=== PATIENT | male | born 1985 | race Caucasian/White ===

== ENCOUNTER 2023-08-31 11:09 | Emergency (ER) | payer OTHER, SELFPAY ==
--- NOTE | ~2023-08-31 | XR_ITS ---
EXAMINATION: XR CHEST CLINICAL INFORMATION: Leg swelling and shortness of breath COMPARISON: None available. TECHNIQUE: 2 views of the chest were obtained. FINDINGS: There is mild cardiac enlargement. No infiltrates effusions or lung masses are seen. There is no evidence of CHF. XR/XR chest 2V IMPRESSION: Mild cardiomegaly. No acute intrathoracic disease.
[2023-08-31 11:14] VITALS: BP 200/120; PULSE 104; RESP 22; TEMP 36.8; O2SAT 94; BMI 68.8
--- NOTE | 2023-08-31 11:15 | ED_ITS ---
HPI - General Adult General Chief complaint: General Medical Stated complaint: high BP and feet swelling Time Seen by Provider: 08/31/23 12:07 Source: patient and family Mode of arrival: ambulatory Limitations: no limitations History of Present Illness HPI narrative: 38 yo male with PMH of obesity, HTN, SEDRICK not using CPAP - came from [place] not taking his medications or using CPAP x 1 year but no feels his SEDRICK is worse his legs are more swollen and he has headaches from elevated BP so he came to get checked out. no PCP until December. He denies chest pain. He does not remember what HTN medications he was on in [place]. He notes he used to be on a diuretic. He has no known DM in the past. MD complaint: HTN Onset (ago): year(s) (1) Severity: moderate Pain Consistency: intermittent Relieving factors: none Exacerbating factors: none Associated symptoms: other (headaches, sleep apnea) Treatments prior to arrival: none Related Data Previous Rx's Medication Instructions Recorded amlodipine 5 mg tablet 5 mg PO DAILY #30 tabs 08/31/23 lisinopril 10 mg tablet 10 mg PO DAILY #30 tabs 08/31/23 Allergies Allergy/AdvReac Type Severity Reaction Status Date / Time No Known Allergies Allergy Verified 08/31/23 11:13 Review of Systems 2 Review of Systems: Constitutional : No Fever, No Chills, No Fatigue ENT/Mouth : No sore throat, No Rhinorrhea Eyes: No Eye Pain, No Swelling, No Redness Cardiovascular : No Chest Pain, No SOB, No Dyspnea on Exertion, pos edema Respiratory : No Cough, No Sputum Gastrointestinal : No Nausea, No Vomiting, No Diarrhea, No abdominal Pain Genitourinary : No Dysuria, No Urinary Frequency, No Hematuria, Musculoskeletal : No joint pain, No Myalgias, No Joint Swelling Skin : No Skin Lesions, No rash Neuro : No Weakness, No Numbness, No Dizziness, positive Headache Psych : No Anxiety/Panic, No Depression All other systems reviewed and are negative [facility] Past Medical History Attestation statement: The following information was validated with the patient. Source: obtained from family Medical History Sleep apnea Obesity HTN (hypertension) Social History Social History (Updated 08/31/23 @ 12:54 by Erika Cabrera DO) Patient Tobacco Use Status: Never used Tobacco Advance Directives: No Advance Directives Information Provided: Yes Physical Exam ED Vital Signs: Vital Signs - 24 hr 08/31/23 11:14 08/31/23 11:55 08/31/23 12:52 Temperature 98.3 F Pulse Rate 104 H 94 88 Respiratory Rate 22 H 20 20 Blood Pressure 200/120 H 191/125 H 187/118 H Pulse Oximetry 94 96 97 Oxygen Delivery Method Room Air Room Air Room Air 08/31/23 13:39 Temperature 97.4 F Pulse Rate 87 Respiratory Rate 16 Blood Pressure 186/126 H Pulse Oximetry 96 Oxygen Delivery Method Room Air BMI result Body Mass Index 68.8 Appearance: Alert. Oriented X3. No acute distress. Eyes: Pupils equal, round and reactive to light. ENT: Pharynx normal. Neck: Normal inspection. Neck supple. CVS: Normal heart rate and rhythm. Pulses normal. Respiratory: No respiratory distress. Breath sounds normal. Abdomen: Soft and nontender. obese Skin: Skin warm and dry. Normal skin color. Normal skin turgor. Extremities: trace lower extremity edema around ankles No calf ttp Neuro: Oriented X 3. No motor deficit. No sensory deficit. Course Course Course Narrative: Patient complains of bilateral leg swelling and pain which began 6 months ago He has history of being diagnosed with high blood pressure and sleep apnea in [place] but takes no medications, has no CPAP machine He complains of frequent shortness of breath and occasional chest pain This is rapid medical exam done in triage pending full evaluation of patient and all labs and results by provider in the ER Labs chest x-ray and EKG ordered Reevaluation(s) Reevaluation #1: appears in no distress likely all chronic will DC home on medications Medications Administered Discontinued Medications Generic Name Dose Route Start Last Admin Trade Name Freq PRN Reason Stop Dose Admin Amlodipine Besylate 5 mg 08/31/23 12:35 08/31/23 12:53 Amlodipine Besylate 5 Mg Tablet PO 08/31/23 12:36 5 mg ONCE ONE Administration Protocol Furosemide 40 mg 08/31/23 12:35 08/31/23 12:53 Furosemide 40 Mg Tablet PO 08/31/23 12:36 40 mg ONCE ONE Administration Protocol Medical Decision Making Medical Decision Making MDM Narrative: 38 yo male with PMH of SEDRICK on CPAP though not compliant, HTN, obesity, here with c/o not having medications x 1 year and has a mild headache and LE edema. He has no CP, no hypoxia. At this time has not been on meds x 1 year. Will need labs, EKG, CXR - edema is very mild and it is chronic doubt DVT. Will start on amlodipine and lasix clinically no signs of end organ damage Differential Diagnosis Differential Diagnoses: The differential diagnosis associated with the presentation includes uncontrolled HTN Admission/Observation Consideration of admission/observation: Escalation of care including admission/observation considered no signs of end organ damage chronic HTN can be managed as outpatient Lab Data [facility] Lab Attestation statement: I reviewed the patient's lab results. 08/31/23 11:28 08/31/23 11:28 Labs: Lab Results 08/31/23 Range/Units 11:28 WBC 7.4 (4.8-10.8) X10*3/uL RBC 5.51 (4.60-5.80) X10*6/uL Hgb 15.9 (14.0-18.0) g/dl Hct 49.1 (42.0-52.0) % MCV 89.1 (80.0-98.0) fL MCH 28.9 (27.0-33.0) pg MCHC 32.4 (31.0-36.0) g/dl RDW 14.6 (11.0-16.0) % Plt Count 287 (160-400) X10*3/uL MPV 11.0 (9.4-12.4) fL Immature Gran % (Auto) 0.7 H (0.0-0.4) % Neut % (Auto) 70.5 (45-73) % Lymph % (Auto) 16.5 L (20-40) % Cotton % (Auto) 8.5 (2-11) % Eos % (Auto) 3.1 (0-4) % Baso % (Auto) 0.7 (0-2) % Lymph # (Auto) 1.2 (1.2-4.9) X10*3/uL Cotton # (Auto) 0.6 (0.1-1.2) X10*3/uL Eos # (Auto) 0.2 (0.0-0.4) X10*3/uL Baso # (Auto) 0.1 (0.0-0.2) X10*3/uL Abs Immat Gran (auto) 0.05 H (0.00-0.03) X10*3/uL Absolute Neuts (auto) 5.2 (2.0-8.3) x10*3/uL Absolute Nucleated RBC 0.000 (0.0-0.012) X10*3/uL Nucleated RBC % (auto) 0.0 (0.0-0.2) /100WBC Sodium 142 (135-145) mmol/L Potassium 3.8 (3.3-5.1) mmol/L Chloride 108 (96-108) mmol/L Carbon Dioxide 28 (22-29) mmol/L Anion Gap 10 L (12-20) BUN 13 (9-16) mg/dL Creatinine 0.79 (0.5-1.4) mg/dL Estim Creat Clear Calc 165.1 Estimated GFR > 60 Random Glucose 138 H (60-115) mg/dL Calcium 9.3 (8.4-10.2) mg/dL Total Bilirubin 0.3 (0.0-1.0) mg/dL Direct Bilirubin 0.1 (0.0-0.5) mg/dL AST 12 (5-37) U/L ALT 17 (0-40) U/L Alkaline Phosphatase 99 (39-117) U/L Troponin I High Sens 3.3 (<3.5-35.0) ng/L B-Natriuretic Peptide 51 (<100) pg/mL Total Protein 7.5 (6.5-8.0) g/dL Albumin 4.1 (3.5-5.0) g/dL Independent Interpretation I performed an independent interpretation of an: EKG and Plain X-Ray (no CHF) Interpretation: Rate: 99 Rhythm: NSR [place]: left Normal P waves. Normal DAVIDA. Normal QRS complex. Poor R wave progression ST T wave : no CHATO, nonspecific ST T wave changes inf leads qTC: normal prior studies: no priors The study has been interpreted contemporaneously by me. . Radiology Impression Discussion of test interpretation with radiology: I have reviewed the radiologist's reading. Independent Historian Clinical information obtained from an independent historian. History obtained from or confirmed by: Friend Prescription Management I considered prescription management with: Other Discharge Plan Discharge Clinical Impression: Hypertension, uncontrolled Patient Disposition: Home, Self-Care Instructions: Heart Healthy Diet (ED), Chronic Hypertension (ED) Additional Instructions: take medications as prescribed. return for confusion, numbness, weakness, severe headaches, chest pain, increased swelling or any other concerns. please see a doctor as soon as possible. corona los medicamentos seg?n lo recetado. Regrese si tiene confusi?n, entumecimiento, debilidad, nash antonina de jb, dolor en el pecho, aumento de la hinchaz?n o cualquier otra inquietud. consulte a un m?dico lo antes posible. Prescriptions: New amlodipine 5 mg tablet 5 mg PO DAILY Qty: 30 1RF lisinopril 10 mg tablet 10 mg PO DAILY Qty: 30 1RF Interventions: ED Discharge Assessment Last Done: 08/31/23 13:47 Discharge Date/Time: 08/31/23 13:47 Print Language: Vietnamese
--- NOTE | 2023-08-31 11:19 | ECG_ITS ---
Test Reason : SOB Blood Pressure : / mmHG Vent. Rate : 099 BPM Atrial Rate : 099 BPM P-R Int : 118 ms QRS Dur : 086 ms QT Int : 356 ms P-R-T Axes : 038 -40 024 degrees QTc Int : 456 ms Normal sinus rhythm Left anterior fascicular block Nonspecific T wave abnormality Abnormal ECG No previous ECGs available Referred By: Hua Villafana Electronically Signed By:GAIL NUÑEZ MD
[2023-08-31 11:33] LABS: MANUAL DIFF FLAG NO
[2023-08-31 11:38] LABS: Basophils Absolute Auto 0.1 X10*3/uL (0.0-0.2); Basophils Percent Auto 0.7 % (0-2); Eosinophils Absolute Auto 0.2 X10*3/uL (0.0-0.4); Eosinophils Percent Auto 3.1 % (0-4); Hematocrit 49.1 % (42.0-52.0); Hemoglobin 15.9 g/dl (14.0-18.0); Imm Gran Abs Auto 0.05 X10*3/uL (0.00-0.03); Imm Gran Pct Auto 0.7 % (0.0-0.4); Lymphocytes Absolute Auto 1.2 X10*3/uL (1.2-4.9); Lymphocytes Percent Auto 16.5 % (20-40); Mean Corpuscular HGB Conc 32.4 g/dl (31.0-36.0); Mean Corpuscular Hemoglobin 28.9 pg (27.0-33.0); Mean Corpuscular Volume 89.1 fL (80.0-98.0); Monocytes Absolute Auto 0.6 X10*3/uL (0.1-1.2); Monocytes Percent Auto 8.5 % (2-11); Neutrophils Absolute Auto 5.2 x10*3/uL (2.0-8.3); Neutrophils Percent Auto 70.5 % (45-73); Platelet Count 287 X10*3/uL (160-400); Red Blood Count 5.51 X10*6/uL (4.60-5.80); Red Cell Distribution Width 14.6 % (11.0-16.0); White Blood Count 7.4 X10*3/uL (4.8-10.8)
[2023-08-31 11:49] LABS: Alanine Aminotransferase 17 U/L (0-40); Albumin Level 4.1 g/dL (3.5-5.0); Alkaline Phosphatase 99 U/L (39-117); Anion Gap 10 (12-20); Aspartate Amino Transferase 12 U/L (5-37); Bilirubin Direct 0.1 mg/dL (0.0-0.5); Bilirubin Total 0.3 mg/dL (0.0-1.0); Blood Urea Nitrogen 13 mg/dL (9-16); Calcium 9.3 mg/dL (8.4-10.2); Carbon Dioxide 28 mmol/L (22-29); Chloride 108 mmol/L (96-108); Creatinine Clr Calc Pharmacy 165.1; Estimated Glomerular Filt Rate > 60; Glucose Random 138 mg/dL (60-115); Potassium 3.8 mmol/L (3.3-5.1); Sodium 142 mmol/L (135-145); Total Protein 7.5 g/dL (6.5-8.0)
[2023-08-31 11:54] LABS: B Type Natriuretic Peptide 51 pg/mL (<100)
[2023-08-31 11:55] VITALS: BP 191/125; PULSE 94; RESP 20; O2SAT 96
[2023-08-31 11:56] LABS: Troponin-I High Sensitivity 3.3 ng/L (<3.5-35.0)
--- NOTE | 2023-08-31 12:05 | PC.NURSE ---
patient came from [place] one year ago, states he stopped taking his medications when he ran out due to not having health [place]. patient presenting today with elevated blood pressure and feet pain. patient bilat lower extremities are edematous
[2023-08-31 12:52] VITALS: BP 187/118; PULSE 88; RESP 20; O2SAT 97
[2023-08-31] MEDS: Furosemide 40 MG TABLET PO (12:53)
[2023-08-31] MEDS: amLODIPine Besylate 5 MG TABLET PO (12:53)
[2023-08-31 13:39] VITALS: BP 186/126; PULSE 87; RESP 16; TEMP 36.3; O2SAT 96
== END 2023-08-31 13:47 | disposition home or self-care (01) ==
PROVIDERS: Physician Assistant Medical; Emergency Provider Emergency Medicine
DX: R51.9 Headache, unspecified (principal); R60.0 Localized edema; I10 Essential (primary) hypertension; R06.02 Shortness of breath; G47.33 Obstructive sleep apnea (adult) (pediatric); R94.31 Abnormal electrocardiogram [ECG] [EKG]; Z79.899 Other long term (current) drug therapy
CPT/HCPCS: 36415; 71046; 80048; 80076; 83880; 84484; 85025; 93005; 99283

== ENCOUNTER 2023-09-14 12:14 | Outpatient (AMB) | payer OTHER, SELFPAY ==
--- NOTE | 2023-09-14 12:29 | MHC.PC.OV ---
Vital Signs 09/14/23 12:31 Height 5 ft 3 in Weight 352 lb BMI 62.3 BP 122/90 H Blood Pressure Location Rt brachial Position Sitting Pulse 97 Pulse Source Pulse Oximeter Pulse Oximetry (%) 98 Oxygen Delivery Method Room Air Intake Visit Reasons: New Patient Intake Note: Pt is here today to [facility] Allergies No Known Allergies Allergy (Verified 09/14/23 12:32) Tobacco use date assessed: 09/14/23 Dental Screening Dental Screen Date: 09/14/23 Did you have a dental visit in the last 12 months?: No Was dental information given to patient?: No HPI HPI Comments History of Present Illness Details The patient is a 38-year-old male here to establish care. [facility] [place] 1 year prior to appointment, and has not seen a healthcare provider since. He states that his past medical history is significant for asthma and obstructive sleep apnea. He has a primary complaint of right knee pain, which he states is a chronic problem, but which has gotten worse due to him slipping in the bathtub 1 week prior to appointment. He denies dizziness, chest pain, numbness, shortness of breath. [facility] Medical History (Updated 09/14/23 @ 14:00 by JEFFREY Jordan) GERD (gastroesophageal reflux disease) Chronic right shoulder pain Systolic murmur Sleep apnea Family History (Updated 09/14/23 @ 12:50 by JEFFREY Jordan) Sister Diabetes type 2, controlled Mother Leukemia Social History Housing: Apartment Patient Tobacco Use Status: Former Tobacco user e-Cigarette/Vaping Use: Never Used service: No Current occupational status: unemployed Cognitive needs: No Hearing needs: No Vision needs: Yes Questionnaire PHQ-9 Over the last 2 weeks, how often have you been bothered by any of the following problems? 1. Little interest or pleasure in doing things: several days 2. Feeling down, depressed, or hopeless: several days 3. Trouble falling or staying asleep, or sleeping too much: several days 4. Feeling tired or having little energy: several days 5. Poor appetite or overeating: several days 6. Feeling bad about yourself - or that you are a failure or have let yourself or your family down: several days 7. Trouble concentrating on things, such as reading the newspaper or watching television: several days 8. Moving or speaking so slowly that other people could have noticed. Or the opposite - being so fidgety or restless that you have been moving around a lot more than usual: several days 9. Thoughts that you would be better off or of hurting yourself in some way: not at all Total score: 8 Depression Screening Interpretation: Negative (Watchful waiting) Depression Screening Done: Yes 26015 - PHQ-9 Billing: Yes Source: Developed by Drs. Derick Galindo, Autumn Coulter, Lenin Dowling and colleagues, with an educational marcello from [employer]. Thrive Questionnaire Date Thrive assessed: 09/14/23 I am a: Patient What is your living situation today?: I do not have a steady places to live Within the past 12 months, did the food you bought not last and you didn't have the money to get more?: Sometimes True Within the past 12 months, did you worry whether your food would run out before you got money to buy more?: Often true Do you have trouble paying for medicines?: Yes Do you have trouble getting transportation to medical appointments?: Yes Do you have trouble paying your heating and electricity bill?: Yes Do you have trouble taking care of your child, family member or friend?: Yes Do you have trouble with day-to-day activities such as bathing, preparing meals, shopping, managing finances, etc.?: Yes Are you currently unemployed and looking for a job?: Yes Are you interested in more education?: Yes Please select the resources that you would like help with: Housing/Long-Term, Food, Paying for medicine, Transportation, Utilities, Childcare, Daily support, Job search/training and Education AUDIT C Alcohol Use Questionnaire (AUDIT-C) 1. How often do you have a drink containing alcohol?: Never Total Score: 0 BEBETO-7 AMB Questionnaire BEBETO-7 Date BEBETO - 7 assessed: 09/14/23 Feeling nervous, anxious, or on edge: 1 = Several days Not being able to stop or control worryin = Several days Worrying too much about different things: 1 = Several days Trouble relaxin = Several days Being so restless that it is hard to sit still: 1 = Several days Becoming easily annoyed or irritable: 1 = Several days Feeling afraid as if something awful might happen: 1 = Several days Total BEBETO-7 score (0-4 normal; 5-9 mild; 10-14 moderate; 15-21 severe): 7 Source: Developed by Drs. Derick Galindo, Autumn Coulter, Lenin Dowling and colleagues, with an educational marcello from [employer]. BEBETO-7 Assessment Billing BEBETO-7 Assessment Tool: BEBETO-7 Assessment 06451 Review of Systems Const Details: Constitutional : No Weight loss, No Fever, No Chills, No Fatigue, No Malaise ENT/Mouth : No sore throat, No Rhinorrhea Eyes: No Eye Pain, No redness. Patient reports he wakes up with a swollen left eye 4x5 time per week. Cardiovascular : No Chest Pain, No SOB, Admits RIZZO, No Orthopnea, No Edema, No Palpitations Respiratory : No Cough, No Sputum, No Wheezing Gastrointestinal : No Nausea, No Vomiting, No Diarrhea, No Constipation, No abdominal Pain, No Hematochezia, No Melena. Admits reflux at night. Genitourinary : No Dysuria, increased fequency at night. Musculoskeletal : Admits right knee and shoulder pain, No Joint Swelling Skin : No Skin Lesions, No rash Neuro : No Weakness, No Numbness, No Dizziness, No Headache Psych : No Anxiety/Panic, No Depression Heme/Lymph: No Bruising, No Bleeding,No Lymphadenopathy Endocrine : No Polyuria, No Polydipsia All other systems reviewed and are negative Eyes Reports itchy eyes Aller/Immun Reports itchy eyes Physical exam (Primary Care) Care Plan Goal for BP management: Vital signs have been reviewed and are stable BMI result Body Mass Index 62.3 BMI Assessment/Plan discussion: High BMI High, discussed plan: lifestyle, dietary and physical activity Depression Screening Interpretation: Negative (Watchful waiting) Const General: cooperative and no acute distress Nutritional Appearance: obese Orientation/consciousness: patient oriented x3 Limitations: ambulation with cane (Patient states due to his weight) HENMT Head: Yes normocephalic Ears: hearing grossly normal bilaterally and TM's normal bilaterally General nose exam: Normal external nose present Throat: Yes posterior oropharynx normal and Yes uvula midline Eyes General: appearance normal, both eyes and all related structures Conjunctivae: conjunctivae normal Sclerae: sclerae normal Pupils: Equal, round and reactive pupils present Direct Ophthalmoscopy: normal light reflex and no photophobia Neck Neck: Yes normal visual inspection and Yes no lymphadenopathy Resp Effort & Inspection: normal respiratory effort Auscultation: clear to auscultation bilaterally Cardio Jugular venous distension: no JVD Palpation: normal PMI Rate: regular rate Rhythm: regular rhythm Heart sounds: Murmur heart sound present systolic GI Inspection: Yes normal to inspection Palpation (GI): Soft to palpation and nontender Auscultation: normal bowel sounds General: Yes no CVA tenderness Back/Spine/Pelvis Back: no CVA tenderness Skin General skin exam: no rashes or lesions noted Neuro General: patient oriented x3 and CN's II-XI intact bilaterally Cranial nerves: Yes Equal, round and reactive pupils present Cognition (Neuro): normal cognition Coordination: Romberg test negative Romberg Test: Negative Psych Affect: normal affect Attitude: cooperative Results Reviewed Results Reviewed: Will review labs and call patient with results. Patient has declined flu immunization today. Assessment and Plan Assessment & Plan (1) Right knee pain: Comment: Patient has reported chronic right knee pain, states his knee is hurting more than usual due to a fall in his bathtub 7 days prior. Able to bear weight on the joint. Will obtain right knee x-ray. Code(s): M25.561 - Pain in right knee Qualifiers: Chronicity: chronic Qualified Code(s): M25.561 - Pain in right knee; G89.29 - Other chronic pain (2) Asthma: Comment: Patient has reported asthma. Patient recently moved up from [place] and has no medical records here. Will order pulmonary function tests with methacholine challenge. Patient will also be given an albuterol inhaler to be used at home as needed. Code(s): J45.909 - Unspecified asthma, uncomplicated Qualifiers: Asthma persistence: unspecified Asthma complication type: unspecified Asthma severity: unspecified severity Qualified Code(s): J45.909 - Unspecified asthma, uncomplicated (3) Sleep apnea: Comment: Reported sleep apnea. Will refer to Sleep Medicine. Code(s): G47.30 - Sleep apnea, unspecified Qualifiers: Sleep apnea type: unspecified type Qualified Code(s): G47.30 - Sleep apnea, unspecified (4) Systolic murmur: Comment: Systolic murmur on physical exam. Will order echocardiogram and EKG. Code(s): R01.1 - Cardiac murmur, unspecified (5) Chronic right shoulder pain: Comment: Patient has chronic right shoulder pain, which he states feels worse over the past few weeks. Will obtain x-ray. Patient instructed he can use Motrin or Tylenol as needed for pain. Educated on side effects of medication. Code(s): M25.511 - Pain in right shoulder; G89.29 - Other chronic pain (6) GERD (gastroesophageal reflux disease): Comment: Patient will be prescribed Omeprazole 20 mg. Code(s): K21.9 - Gastro-esophageal reflux disease without esophagitis Qualifiers: Esophagitis presence: without esophagitis Qualified Code(s): K21.9 - Gastro-esophageal reflux disease without esophagitis Plan Will obtain labs, x-ray of the right shoulder and right knee. Patient has referral to Sleep Medicine, and allergy medicine. Will obtain baseline echocardiogram, EKG. Allergy referral is due to patient reportedly waking up with swollen upper right eyelid. Patient has appointment with director of social media marketing to do with his unstable housing. Orders: Orders XR shoulder RT min 2V Today G89.29 - Other chronic pain, M25.511 - Pain in right shoulder Comprehensive [place]. Panel Fast Today Z00.00 - Encounter for general adult medical examination without abnormal findings Complete Blood Count Auto Diff Today Z00.00 - Encounter for general adult medical examination without abnormal findings TSH reflex Free T4 Today Z00.00 - Encounter for general adult medical examination without abnormal findings AMB EKG-In Office Today R01.1 - Cardiac murmur, unspecified RT pft w methacholine 2 Months J45.909 - Unspecified asthma, uncomplicated CA echo transthoracic complete Today R01.1 - Cardiac murmur, unspecified UA CC w/rflx Micro + Cult Today Z00.00 - Encounter for general adult medical examination without abnormal findings Lipid Panel Today Z00.00 - Encounter for general adult medical examination without abnormal findings Referrals Sleep Medicine Referral G47.30 - Sleep apnea, unspecified Allergy & Immunology Referral H57.89 - Other specified disorders of eye and adnexa Medications: New omeprazole 20 mg PO DAILY 45 caps 0RF albuterol sulfate 90 mcg/actuation 2 puffs inhalation Q6H PRN 8.5 grams 0RF shortness of breath or wheezing Review Flu Vaccine not done: patient reason (Declined) Coding Level of Care Code New Pt Level 5 (69503) Diagnoses Chronic pain of right knee M25.561; G89.29 Chronicity: chronic Asthma, unspecified asthma severity, unspecified whether complicated, unspecified whether persistent J45.909 Asthma persistence: unspecified Asthma complication type: unspecified Asthma severity: unspecified severity Sleep apnea, unspecified type G47.30 Sleep apnea type: unspecified type Systolic murmur R01.1 Chronic right shoulder pain M25.511; G89.29 Gastroesophageal reflux disease without esophagitis K21.9 Esophagitis presence: without esophagitis Additional Codes BEBETO-7 Assessment Billing - BEBETO-7 Assessment Tool: BEBETO-7 Assessment 56589 ([id number]) Time Spent (min) 45
[2023-09-14 12:31] VITALS: BP 122/90; PULSE 97; O2SAT 98; BMI 62.3
== END 2023-09-14 14:14 | disposition home or self-care (01) ==
PROVIDERS: PCP Internal Medicine; Visit Provider Nurse Practitioner Primary Care
DX: M25.561 Pain in right knee (principal); G89.29 Other chronic pain; J45.909 Unspecified asthma, uncomplicated; G47.30 Sleep apnea, unspecified; R01.1 Cardiac murmur, unspecified; M25.511 Pain in right shoulder; K21.9 Gastro-esophageal reflux disease without esophagitis
CPT/HCPCS: 99204

== ENCOUNTER → 2023-10-10 15:08 | Outpatient (REF) | payer OTHER, SELFPAY ==
--- NOTE | 2023-10-10 15:13 | CA_ITS ---
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 The visually estimated ejection fraction is between 55-60%. - There is moderately increased left ventricular wall thickness. - There is mild to moderate mitral valve regurgitation. Findings Left Ventricle Normal left ventricular cavity size. There is moderately increased left ventricular wall thickness. The left ventricular systolic function is normal. The visually estimated ejection fraction is between 55-60%. There is no evidence of regional wall motion abnormalities. Evidence suggests grade I (mild) diastolic dysfunction. Right Ventricle Normal right ventricular cavity size and systolic function. Atria Both atria are normal in size. Aortic Valve There is a normal trileaflet aortic valve. There is no aortic valve stenosis. There is no aortic valve regurgitation. Mitral Valve The mitral valve was not well visualized. There is mild to moderate mitral valve regurgitation. The mitral regurgitation jet is directed anteriorly. There is no mitral valve stenosis. Pulmonic Valve The pulmonic valve is likely normal. Tricuspid Valve There is trace tricuspid valve regurgitation. There is no evidence of pulmonary hypertension. Great Vessels The asc aorta is normal in size. Venous The inferior vena cava is normal in size and collapses greater than 50% with inspiration. Pericardium/Pleural There is no evidence of pericardial effusion. Prior Study Comparison No prior study available for comparison. Measurements 2D Linear Measurements IVSd: 1.51 0.6-0.9/0.6-1.0 cm LVIDd: 5.67 3.9-5.3/4.2-5.9 cm LVIDd Index: 2.30 2.4-3.2/2.2-3.1 cm/m2 LVIDs: 3.74 2.0-3.6 cm LVPWd: 1.39 0.7-1.1 cm Ao Root: 3.20 2.1-3.5 cm LA Diam: 4.80 2.7-3.8/3.0-4.0 cm LAIDs Index: 1.94 1.5-2.3 cm/m2 LV Mass: 465.02 67-162/88-224 g LV Mass Index: 188.27 43-95/49-115 g/m2 LVOT Diam: 2.50 3.0+(-)1.3 cm 2D Systolic Function EF 4C: 53.30 >55% EF 2C: 54.60 >55% EF BiP: 51.50 >55% Mitral Valve MV Pk E: 0.92 MV PK A: 1.04 MV Decel Time: 213.00 E/A: 0.90 E'Lateral: 5.55 E'Medial: 5.98 E/E' Med: 15.30 E/E' Lat: 16.50 PHT: 62.00 MVA PHT: 3.55 Decel [place]: 4.30 Aortic Valve AoV Pk Roc: 1.38 AoV Mn Roc: 1.00 AoV VTI: 0.28 AoV Pk Grad: 8.00 Aov Mn Grad: 5.00 LVOT LVOT Diam: 2.50 LVOT Area: 4.91 Diastolic Function MV Pk E: 0.92 MV Pk A: 1.04 E/A: 0.90 E'Medial: 5.98 E/E' Med: 15.30 E' Laterial: 5.55 E/E' Lat: 16.50 Right Ventricle TAPSE (mm): 18.00 TVS' Roc: 17.00 Tricuspid Valve TR Pk Roc: 2.02 TR Pk Grad: 16.00 RA Press: 3.00 RVSP: 19.00 Great Vessels Aorta Ao Root-2D: 3.20 2.0-3.7 cm Ao Asc: 3.50 2.1-3.4 cm Pulmonary Valve PV Pk Roc: 0.99 Peak PV Grad: 4.00 Updated in Other Vendor System with Status of Final Mg Davis MD electronically signed on 10/11/2023 8:52:53 AM with status of Final
== END ==
LOC: HO.CARD 15:08
PROVIDERS: PCP Nurse Practitioner Primary Care; Visit Provider Nurse Practitioner Primary Care
DX: R01.1 Cardiac murmur, unspecified (principal)
CPT/HCPCS: 93306

== ENCOUNTER → 2023-10-10 15:13 | Outpatient (BNV) | payer OTHER, SELFPAY | PROVIDERS: PCP Nurse Practitioner Primary Care; Visit Provider Internal Medicine | DX: I34.0 Nonrheumatic mitral (valve) insufficiency (principal) | CPT/HCPCS: 93306 ==

== ENCOUNTER 2023-12-27 12:26 | Outpatient (AMB) | payer MEDICAID, SELFPAY ==
--- NOTE | 2023-12-27 12:30 | A.OFFPC_ITS ---
Vital Signs 12/27/23 12:34 Weight 374 lb BP 136/90 H Blood Pressure Location Lt brachial Position Sitting Pulse 95 Pulse Source Pulse Oximeter Pulse Oximetry (%) 96 Oxygen Delivery Method Room Air Intake Visit Reasons: HDF [facility] Asthma/Cellulitis Intake Note: Patient here for Hospital follow up. Allergies No Known Allergies Allergy (Verified 12/27/23 12:47) Medication List - Last Reconciled 12/27/23 by JEFFREY Jordan albuterol sulfate 90 mcg/actuation 2 puffs inhalation Q6H PRN lisinopril 10 mg PO DAILY Tobacco use date assessed: 12/27/23 Dental Screening Dental Screen Date: 12/27/23 Did you have a dental visit in the last 12 months?: Yes Did you have a dental problem in the last 6 months where you did not have access to dental care?: No Was dental information given to patient?: Patient has dentist HPI HPI Comments History of Present Illness Details Patient is a 38-year-old male here for a follow-up from emergency visit at [facility] for cellulitis an asthma exacerbation. He was di scharged with a daily maintenance inhaler and antibiotics which he has since completed. Patient has a past medical history significant for obesity, diabetes type 2, hypertension, hyperlipidemia, and GERD. His last visit in office was in mid August, will draw new A1c. The patient is not currently take any medication for diabetes will start on metformin. Patient will also have referral to metabolic clinic. He is currently offering complaints of constipation. Patient also had forms from [facility] filled out to establish visiting nurses. Forms were sent over to [facility] today [facility] Medical History Sleep apnea Obesity HTN (hypertension) GERD (gastroesophageal reflux disease) Chronic right shoulder pain Systolic murmur Sleep apnea Family History Sister Diabetes type 2, controlled Mother Leukemia Social History Housing: Apartment Patient Tobacco Use Status: Former Tobacco user e-Cigarette/Vaping Use: Never Used service: No Current occupational status: unemployed Cognitive needs: No Hearing needs: No Vision needs: Yes Questionnaire Thrive Questionnaire Date Thrive assessed: 09/14/23 AUDIT C Alcohol Use Questionnaire (AUDIT-C) 1. How often do you have a drink containing alcohol?: Never 3. How often do you have six or more drinks on one occasion?: Never Total Score: 0 Score Reviewed/Action Taken: No BEBETO-7 AMB Questionnaire BEBETO-7 Date BEBETO - 7 assessed: 09/14/23 Source: Developed by Drs. Derick Galindo, Autumn Coulter, Lenni Dowling and colleagues, with an educational marcello from [employer]. Review of Systems Const Details: Constitutional : No Weight loss, No Fever, No Chills, No Fatigue, No Malaise ENT/Mouth : No sore throat, No Rhinorrhea. Admits right ear pain. Eyes: No Eye Pain, No Swelling, No Redness, No change in vision. Cardiovascular : No Chest Pain, No SOB, No Dyspnea on Exertion, No Orthopnea, No Edema, No Palpitations Respiratory : No Cough, No Sputum, No Wheezing Gastrointestinal : No Nausea, No Vomiting, No Diarrhea, Admits Constipation, No abdominal Pain, No Hematochezia, No Melena Genitourinary : No Dysuria, No Urinary Frequency, No Hematuria, Musculoskeletal : No joint pain, No Myalgias, No Joint Swelling Skin : Admits redness on right coello. Neuro : No Weakness, No Numbness, No Dizziness, No Headache Psych : No Anxiety/Panic, No Depression Heme/Lymph: No Bruising, No Bleeding,No Lymphadenopathy Endocrine : No Polyuria, No Polydipsia All other systems reviewed and are negative Physical exam (Primary Care) Vital Signs: Last Vital Signs Pulse 95 12/27/23 12:34 BP 136/90 H 12/27/23 12:34 Pulse Ox 96 12/27/23 12:34 Oxygen Delivery Method Room Air 12/27/23 12:34 Care Plan Goal for BP management: Patient will take BP measurements at home and with VNA. Tobacco/Smoking Status: Tobacco use Status Tobacco use date assessed 12/27/23 12/27/23 12:38 Patient Tobacco Use Status Former Tobacco user 12/27/23 12:38 e-Cigarette/Vaping Use Never Used 12/27/23 12:36 Thrive Assessment: Date of Thrive Assessment Date Thrive assessed 09/14/23 12/27/23 12:36 Const Other: Appearance: Alert.? Oriented X3.? No acute distress.? Head: Normocephalic, atraumatic. Eyes: Pupils equal, round and reactive to light.? ENT: Pharynx normal.?Right TM inact, erythema and effusion. Neck: Normal inspection.? Neck supple.? CVS: Normal heart rate and rhythm.? Pulses normal.? Respiratory: No respiratory distress.? Breath sounds normal.? Abdomen: Soft and nontender.? Skin: Right LE has erythema, no discharge. No tednerness. Extremities: No lower extremity edema.? No calf ttp. 5/5 strength to bilateral upper and lower extremities Back: No midline tenderness, no C-spine tenderness, full range of motion, no CVA tenderness bilaterally Neuro: Oriented X 3.? No motor deficit.? No sensory deficit. CN 2-12 intact Results AMB Hemoglobin A1c AMB Hemoglobin A1c 6.1 % Last Edit by JALEEL Loco on 12/27/23 13 :11 Assessment and Plan Assessment & Plan (1) Asthma: Comment: Patient will be given Symbicort to be taken b.i.d.. Been educated on side effects these medication will also refill patient's albuterol inhaler. Code(s): J45.909 - Unspecified asthma, uncomplicated Qualifiers: Asthma severity: unspecified severity Asthma persistence: unspecified Asthma complication type: unspecified Qualified Code(s): J45.909 - Unspecified asthma, uncomplicated Plan: Take your medications as prescribed. If you were prescribed antibiotics today, it is important that you take your medication to their entirety, do not skip any doses, do not finish them early. Follow-up with your primary care provider this week. Return to the emergency department with new or worsening symptoms. Such as fevers, chills, chest pain, shortness of breath, nausea, vomiting, dizziness, headache, vision changes, lethargy In case of emergency call 911 (2) Right otitis media: Comment: Patient has right otitis media. Will give doxycycline to be taken as directed. Code(s): H66.91 - Otitis media, unspecified, right ear Qualifiers: Otitis media type: unspecified Qualified Code(s): H66.91 - Otitis media, unspecified, right ear (3) Constipation: Comment: Will give patient senna and Colace to be taken as directed. Patient will also have referral to our metabolic clinic to assist with diet losing weight Code(s): K59.00 - Constipation, unspecified Qualifiers: Constipation type: unspecified constipation type Qualified Code(s): K59.00 - Constipation, unspecified (4) Diastolic dysfunction: Comment: Patient's recent echocardiogram demonstrated grade 1 diastolic dysfunction. Will refer to Cardiology. Code(s): I51.89 - Other ill-defined heart diseases (5) Venous stasis: Comment: While patient was inpatient infection of right lower extremity stated to be due to venous stasis from being overweight. Will refer to our metabolic clinic Code(s): I87.8 - Other specified disorders of veins Plan Patient will follow-up in 3 months. A1c in office today was 6.1 Orders: Orders AMB Hemoglobin A1c Today Z13.9 - Encounter for screening, unspecified Referrals Metabolic Clinic Referral E11.9 - Type 2 diabetes mellitus without complications, E66.9 - Obesity, unspecified, I87.8 - Other specified disorders of veins Cardiology Referral I51.89 - Other ill-defined heart diseases Medications: New budesonide-formoterol 160-4.5 mcg/actuation (Symbicort) 2 puffs inhalation Q12H 10.2 grams 0RF sennosides (senna) 8.6 mg PO DAILY PRN 90 caps 0RF constipation doxycycline hyclate 100 mg PO BID 14 tabs 0RF docusate sodium (Colace) 100 mg PO DAILY PRN 90 caps 0RF constipation Refilled albuterol sulfate 90 mcg/actuation 2 puffs inhalation Q6H PRN 8.5 grams 0RF shortness of breath or wheezing Coding Level of Care Code Est Pt Level 3 (12173) Diagnoses Asthma, unspecified asthma severity, unspecified whether complicated, unspecified whether persistent J45.909 Asthma severity: unspecified severity Asthma persistence: unspecified Asthma complication type: unspecified Right otitis media, unspecified otitis media type H66.91 Otitis media type: unspecified Constipation, unspecified constipation type K59.00 Constipation type: unspecified constipation type Diastolic dysfunction I51.89 Venous stasis I87.8 Time Spent (min) 40
[2023-12-27 12:34] VITALS: BP 136/90; PULSE 95; O2SAT 96
== END 2023-12-27 15:37 | disposition home or self-care (01) ==
PROVIDERS: PCP Nurse Practitioner Primary Care; Visit Provider Nurse Practitioner Primary Care
DX: J45.909 Unspecified asthma, uncomplicated (principal); H66.91 Otitis media, unspecified, right ear; K59.00 Constipation, unspecified; I51.89 Other ill-defined heart diseases; I87.8 Other specified disorders of veins; K21.9 Gastro-esophageal reflux disease without esophagitis
CPT/HCPCS: 83036; 99213